=== PATIENT | female | born 1935 | race Caucasian/White ===

== ENCOUNTER → 2016-10-23 | Outpatient (CLI) | payer MEDICARE, OTHER ==
[~2016-10-23] MED LIST: ALBU8.5H3 INH; ALEN70TA30 PO; ASPI-664 PO; CELE200C PO; CLON1PAT17 TD; CLOP75TA27 PO; CYCL-319 PO; ENAL5TAB PO; ESOM40CA PO; GABA100C14 PO; LIDO700A6 TD; MEMA21CA PO; METO100T13 PO; MILN50TA PO; NIFE30TA60 PO; OLME40TA14 PO; OMEG1CAP2 PO; ROSU20TA PO; TRAM50TA2 PO; ZALE5CAP PO
--- NOTE | 2016-10-23 16:00 | RADRPT ---
PROCEDURE: CT scan of the abdomen and pelvis without IV contrast. CLINICAL INDICATION: Weight loss. TECHNIQUE: Thin section axial, coronal and sagittal images were performed through the abdomen and pelvis without contrast. Radiation Dose: CTDI: 18.4 and DLP: 1039.75 One or more of the following dose reduction techniques were used: - Automated exposure control. - Adjustment of the mA and/or kV according to patient size. Use of iterative reconstruction technique. COMPARISON: Chest x-ray 10/13/2016 06:18 a.m. FINDINGS: Soft tissues: Generous but otherwise unremarkable.. Lungs and pleural spaces: There are plate-like densities in the bases of the lungs consistent with p arenchymal scarring or atelectasis. No infiltrate or pleural effusion is identified. Heart: The heart is normal in size. There are vascular calcifications in the coronary arteries. The liver, common bile duct and gallbladder: The liver is normal in size. There is a possible subca psular lesion in the inferior lateral right lobe of the liver suggested on coronal image 47 of serie s 601. Although this finding is equivocal, given the patient's history, an abdominal ultrasound or c ontrast enhanced hemangioma protocol CT liver is recommended for evaluation. The gallbladder is nor mal. Gastrointestinal: There is no evidence of a hiatal hernia. The stomach is normal. There is diastas is rectus with a small midline umbilical hernia. No mechanical small-bowel obstruction is identifie d. There are diverticula in the descending colon. The vermiform appendix is normal. There are div erticula in the sigmoid colon. There is a right inguinal hernia containing only fat, no intra-abdomi nal. Pancreas: There is fatty replacement of the pancreas with no pancreatic mass or extrahepatic biliary ductal dilatation identified. Kidneys, bladder and adrenal glands : The adrenal glands and kidneys are unremarkable. The urinary bladder is normal. Spleen: Normal. Lymph nodes: Normal. Reproductive system and pelvis : Normal. No abnormal adnexal mass is identified. Bony elements: There are degenerative osteophytes in the thoracic and lumbar spine. There is a 2.7 cm benign hemangioma in the body of L3. There is a benign hemangioma measuring up to 2.5 cm AP in t he left side of the body of T12. There is a mild compression fracture involving the superior plate of T12 which appears chronic. Vasculature: There are atherosclerotic vascular calcifications in the abdominal aorta and its branch es. IMPRESSION: 1. Parenchymal scarring or atelectasis in the bases of the lungs. No acute infiltrate is present. 2. Atherosclerotic vascular disease. 3. Abdominal sonogram of the liver is recommended to exclude or further characterize if present a p otential 1.1 cm subcapsular lesion in the inferior right lobe of the liver. Series 601; image 47. 4. Diverticulosis of the descending and sigmoid colon. 5. Benign hemangioma is at L3 and T12 with chronic T12 compression fracture. 6. Atherosclerotic vascular disease. 7. Osteoarthritis of the thoracic and lumbosacral spine with a mild dextroscoliosis in the upper caterina mbar spine. 8. Rectus diastasis with small midline umbilical hernia. RPTAT:AAJJ Physician Mode Date Time Electronically viewed and signed by Jamil Melendez Physician on 10/23/2016 15:59 RAYA/
== END | disposition home or self-care (01) ==
LOC: C/S 08:40
PROVIDERS: ATTEND Internal Medicine
DX: R63.4 Abnormal weight loss (principal); J98.11 Atelectasis; I70.209 Unspecified atherosclerosis of native arteries of extremities, unspecified extremity; K57.90 Diverticulosis of intestine, part unspecified, without perforation or abscess without bleeding; D18.09 Hemangioma of other sites; M47.897 Other spondylosis, lumbosacral region; Q79.59 Other congenital malformations of abdominal wall; K42.9 Umbilical hernia without obstruction or gangrene
CPT/HCPCS: 74176

== ENCOUNTER 2017-01-12 09:49 | Emergency (ER) | payer MEDICARE, OTHER ==
[~2017-01-12] VITALS: Ht 160 cm; Wt 75.0 kg
[2017-01-12 09:51] VITALS: Ht 160 cm; Wt 75.0 kg
[2017-01-12] MEDS ORDERED: ONDANSETRON 4 MG INJ IV STA (10:23)
[2017-01-12] MEDS ORDERED: morphine 2 MG INJ IV STA (10:23)
[2017-01-12 10:47] LABS: ADD SCAN DIFF NO
[2017-01-12 10:54] LABS: BASOPHILS % 0.4 % (0.0-2.0); EOSINOPHILS % 0.3 % (0.0-7.0); HEMATOCRIT 42.5 % (37.0-47.0); HEMOGLOBIN 13.9 g/dl (12.0-16.0); LYMPHOCYTES # 1.4 10^3/ul (0.8-2.9); LYMPHOCYTES % 18.7 % (15.0-51.0); MEAN CORPUSCULAR HGB CONC 32.7 g/dl (32.0-37.0); MEAN CORPUSCULAR VOLUME 91.6 fl (82.0-101.0); MEAN PLATELET VOLUME 10.5 fl (7.4-10.4); MONOCYTE # 0.5 10^3/ul (0.3-0.9); MONOCYTES % 6.4 % (0.0-11.0); NEUTROPHIL # 5.7 10^3/ul (1.6-7.5); NEUTROPHILS % 73.7 % (39.0-77.0); PLATELET COUNT 236 10^3/UL (140-415); RED BLOOD COUNT 4.64 10^6/ul (4.20-5.40); RED CELL DISTRIBUTION WIDTH 13.2 % (11.5-14.5); WHITE BLOOD COUNT 7.7 10^3/ul (4.8-10.8)
--- NOTE | 2017-01-12 11:08 | RADRPT ---
PROCEDURE: XR Chest. CLINICAL INDICATION: Chest pain TECHNIQUE: Single frontal view of the chest was obtained. COMPARISON: 12/25/2014 FINDINGS: The heart is within normal limits. The thoracic aorta is calcified. The lungs are clear. There is no pleural effusion or pneumothorax. RPTAT: AA IMPRESSION: No acute disease. Calcified aorta consistent with atherosclerotic disease. .Davide Garcia MD, MD Date Time Electronically viewed and signed by .Davide Garcia MD, on 01/12/2017 11:08 .S/
[2017-01-12 11:28] LABS: CHLORIDE 100 mmol/L (97-110); POTASSIUM 3.5 mmol/L (3.5-5.1); SODIUM 139 mmol/L (135-144)
[2017-01-12 11:31] LABS: ANION GAP 17 (8-16); BLOOD UREA NITROGEN 13 mg/dl (7-20); CARBON DIOXIDE 26 mmol/L (21-31); CREATININE 0.61 mg/dl (0.44-1.00)
[2017-01-12 11:32] LABS: CALCIUM 9.6 mg/dl (8.4-10.2); GLUCOSE 107 mg/dl (70-220)
[2017-01-12 11:45] LABS: TROPONIN-I < 0.012 ng/ml (0.00-0.12)
--- NOTE | 2017-01-12 13:06 | ERD ---
ER Documentation Chief Complaint Date/Time DATE: 01/12/17 TIME: 09:40 Chief Complaint TRIP AND FALL THIS MORNING C/O OF RIGHT RIB PAIN HPI 81-year-old female with a history of hypertension, hyperlipidemia, arthritis, paroxysmal SVT status post ablation, migraine headaches and intermittent dizziness ambulatory to the ED complaining of right rib pain. She was in her house when she turned suddenly experienced transient dizziness and hit her right chest against the counter. Since then she has been having increasing, sharp, moderate to severe right-sided lateral rib pain exacerbated by deep breathing and movement. There was no fall, syncope or loss of consciousness. She denies headache, neck pain, visual changes, focal weakness or numbness. No dizziness or lightheadedness. No chest pain or palpitations. No shortness of breath or cough. No abdominal pain, nausea, vomiting, diarrhea or constipation. No recent URI symptoms or rhinorrhea. Denies earache but she does complain of intermittent tinnitus. Denies dysuria, polyuria, hematuria or flank pain. No fevers or chills. ROS All systems reviewed and are negative except as per history of present illness. Medications Home Meds Active Scripts Tramadol HCl (Tramadol HCl) 50 Mg Tablet, 50 MG PO Q6 Y for PAIN, #12 TAB Prov:TREVA BAEZ MD 01/12/17 Enalapril Maleate* (Enalapril Maleate*) 5 Mg Tablet, 10 MG PO DAILY for 30 Days , TAB Prov:LANG HANKINS MD 12/26/14 Reported Medications Milnacipran Hcl (Savella) 50 Mg Tablet, 50 MG PO BID, TAB 12/25/14 Olmesartan Medoxomil (Benicar) 40 Mg Tablet, 40 MG PO DAILY, TAB 12/25/14 Lidocaine 5%* (Lidoderm 5%*) 5% - Patch Adh..patch, 1 PATCH TD DAILY, PATCH 12/25/14 Memantine* (Namenda* XR) 21 Mg Cap.spr.24, 21 MG PO DAILY, TAB 12/25/14 Esomeprazole Mag Trihydrate (Nexium) 40 Mg Capsule.dr, 40 MG PO BID, CAP 12/25/14 Alendronate Sodium* (Fosamax*) 70 Mg Tablet, 70 MG PO Q7D, TAB 12/25/14 Clonidine Hcl Transdermal Patch* (Catapres-TTS 1*) 0.1 Mg/24 Hr/Patch.wk Patch.tdwk, 1 PATCH TD Q7D, PATCH 12/25/14 Albuterol Sulfate* (Proair HFA*) 8.5 Gm Hfa.aer.ad, 2 PUFF INH Q4H Y for WHEEZING AND SOB, INH 12/25/14 Cyclobenzaprine Hcl* (Cyclobenzaprine Hcl*) 10 Mg Tablet, 10 MG PO DAILY Y for MUSCLE SPASMS, TAB 12/25/14 Tramadol HCl (Tramadol HCl) 50 Mg Tab, 50 MG PO BID, TAB 12/25/14 Gabapentin* (Gabapentin*) 100 Mg Capsule, 100 MG PO TID, CAP 12/25/14 Clopidogrel Bisulfate (Clopidogrel) 75 Mg Tablet, 75 MG PO DAILY, TAB 12/25/14 Pitkin-3 Acid Ethyl Esters (Lovaza) 1 Gm Capsule, 2 GM PO BID, CAP 12/25/14 Zaleplon (Zaleplon) 5 Mg Capsule, 5 MG PO HS Y for INSOMNIA, CAP 12/25/14 Metoprolol Succinate* (Toprol XL*) 100 Mg Tab.sr.24h, 100 MG PO DAILY, TAB 12/25/14 Nifedipine* (Nifedipine ER*) 30 Mg Tablet.sa, 30 MG PO BID, TAB.SA 12/25/14 Celecoxib* (Celebrex*) 200 Mg Capsule, 200 MG PO DAILY, CAP 12/25/14 Rosuvastatin Calcium* (Crestor*) 20 Mg Tablet, 20 MG PO HS, TAB 12/25/14 Aspirin* (Aspirin* EC) 81 Mg Tablet.dr, 81 MG PO DAILY, TAB 12/25/14 Allergies Allergies: Coded Allergies: No Known Allergy (Unverified , 01/12/17) PMhx/Soc Reviewed in chart. As per HPI. Medical and Surgical Hx: pt denies Surgical Hx History of Surgery: No Anesthesia Reaction: No Hx Neurological Disorder: No Hx Respiratory Disorders: No Hx Cardiac Disorders: Yes (afib) Hx Psychiatric Problems: No Hx Miscellaneous Medical Probl: Yes (vertigo) Hx Alcohol Use: No Hx Substance Use: No Hx Tobacco Use: No Smoking Status: Never smoker FmHx Mother: CVA. Lives independently and cares for her infirmed . Physical Exam Vitals Vital Signs Date Time Temp Pulse Resp B/P Pulse Ox O2 Delivery O2 Flow Rate FiO2 01/12/17 11:59 77 18 130/90 99 Room Air 01/12/17 09:51 98.8 72 20 150/75 98 Physical Exam Const: Alert, moderate distress due to pain. Head: Atraumatic Eyes: Normal Conjunctiva ENT: Normal External Ears, Nose and Mouth. Neck: Full range of motion. Supple, nontender, full range of motion Resp: Clear to auscultation bilaterally Cardio: Regular rate and rhythm, no murmurs Chest Wall: Right lateral chest wall tenderness. No subcutaneous crepitus. No ecchymosis or bruising. Abd: Soft, non tender, non distended. Normal bowel sounds Skin: No petechiae or rashes Back: No midline or flank tenderness Ext: No cyanosis, or edema Neur: Awake and alert Psych: Normal Mood and Affect Result Diagram: 01/12/17 1030 01/12/17 1030 Results 24 hrs Laboratory Tests Test 01/12/17 10:30 White Blood Count 7.710^3/ul Red Blood Count 4.6410^6/ul Hemoglobin 13.9g/dl Hematocrit 42.5% Mean Corpuscular Volume 91.6fl Mean Corpuscular Hemoglobin 30.0pg Mean Corpuscular Hemoglobin Concent 32.7g/dl Red Cell Distribution Width 13.2% Platelet Count 68295^3/UL Mean Platelet Volume 10.5fl Neutrophils % 73.7% Lymphocytes % 18.7% Monocytes % 6.4% Eosinophils % 0.3% Basophils % 0.4% Nucleated Red Blood Cells % 0.0/100WBC Neutrophils # 5.710^3/ul Lymphocytes # 1.410^3/ul Monocytes # 0.510^3/ul Eosinophils # 0.010^3/ul Basophils # 0.010^3/ul Nucleated Red Blood Cells # 0.010^3/ul Sodium Level 139mmol/L Potassium Level 3.5mmol/L Chloride Level 100mmol/L Carbon Dioxide Level 26mmol/L Anion Gap 17 Blood Urea Nitrogen 13mg/dl Creatinine 0.61mg/dl Glucose Level 107mg/dl Calcium Level 9.6mg/dl Troponin I < 0.012ng/ml Current Medications Medications (Trade) Dose Ordered Sig/Jayy Route PRN Reason Start Time Stop Time Status Last Admin Dose Admin Morphine Sulfate (morphine) 2 mg ONCE STAT IV 01/12/17 10:23 01/12/17 10:25 DC 01/12/17 10:31 Ondansetron HCl (Zofran Inj) 4 mg ONCE STAT IV 01/12/17 10:23 01/12/17 10:25 DC 01/12/17 10:30 RHYTHM STRIP INTERPRETATION: Time: []. Indication: []. EKG: Time: 10:35. Sinus rhythm. Ventricular rate 69, normal TX and QRS intervals. No acute ST segment elevation or depression. No axis deviation or ectopy. EP Impression: Normal EKG IMAGING: PROCEDURE: XR Chest. CLINICAL INDICATION: Chest pain TECHNIQUE: Single frontal view of the chest was obtained. COMPARISON: 12/25/2014 FINDINGS: The heart is within normal limits. The thoracic aorta is calcified. The lungs are clear. There is no pleural effusion or pneumothorax. RPTAT: AA IMPRESSION: No acute disease. Calcified aorta consistent with atherosclerotic disease. .Davide Garcia MD, MD Date Time Electronically viewed and signed by .Davide Garcia MD, MD on 01/12/2017 11: 08 .S/ Procedures/MDM DOCUMENTS REVIEWED: ED nurse, prior records REEXAMINATION/REEVALUATION: Time: 13:00. Doing well. Pain diminished. [employer] DECISION MAKIN-year-old female with a history of hypertension, hyperlipidemia, arthritis, paroxysmal SVT status post ablation, migraine headaches and intermittent dizziness ambulatory to the ED complaining of right rib pain. Patient presents with chest wall pain secondary to contusion. No radiographic evidence of pneumothorax or rib fracture although occult fracture is possible. No cardiac dysrhythmia and EKG is normal. Patient has intermittent dizziness but no vertiginous symptoms. There was no syncope, fall or loss of consciousness. No focal deficit or indication for neuroimaging. Doubt vertebrobasilar TIA is considered but unlikely. Pain improved with analgesics. Stable for discharge with precautionary instructions and outpatient follow-up as counseled Counseled patient regarding diagnostic workup, diagnosis and need for followup. Understands to return to ED if symptoms recur, worsen or any other concerns. Departure Diagnosis: Primary Impression: Chest wall contusion Encounter type: initial encounter Laterality: right Qualified Code: S20.211A - Chest wall contusion, right, initial encounter Additional Impressions: Dizziness History of paroxysmal supraventricular tachycardia History of radiofrequency ablation (RFA) procedure for cardiac arrhythmia Condition: Stable (Improved) TREVA BAEZ MD January 12, 2017 13:06
[2017-01-12] MEDS ORDERED: TRAM50TA2 PO (13:09)
[2017-01-12 13:24] VITALS: BP 125/87; PULSE 75; RESP 18; TEMP 98.8
== END 2017-01-12 13:05 | disposition home or self-care (01) ==
LOC: E/R 09:49 → FTE 13:05
DX: S20.211A Contusion of right front wall of thorax, initial encounter (principal); R42 Dizziness and giddiness; I10 Essential (primary) hypertension; W01.198A Fall on same level from slipping, tripping and stumbling with subsequent striking against other object, initial encounter; Y92.009 Unspecified place in unspecified non-institutional (private) residence as the place of occurrence of the external cause; Z86.79 Personal history of other diseases of the circulatory system; Z98.890 Other specified postprocedural states; Z79.82 Long term (current) use of aspirin
CPT/HCPCS: 71010; 80048; 84484; 85025; J2270; J2405; 93005; 96374; 96375

== ENCOUNTER 2017-12-16 12:26 | Emergency (ER) | END 2017-12-16 16:31 | disposition home or self-care (01) ==

== ENCOUNTER 2019-04-10 14:02 | Emergency (ER) | payer MEDICARE, OTHER ==
[~2019-04-10] VITALS: Wt 75.0 kg
[~2019-04-10 14:02] MED LIST changes: -ALBU8.5H3 INH; -ALEN70TA30 PO; +ALEN70TA5 PO; +AMLO5TAB4 PO; +APIX5TAB PO; -ASPI-664 PO; +ASPI-817 PO; +ASPI81TA52 PO; +CITA10TA5 PO; +CLON-379 PO; -CLON1PAT17 TD; -CLOP75TA27 PO; -CYCL-319 PO; +CYCL10TA7 PO; +DEXL30CA2 PO; +DIC20 PO; +DONE10TA7 PO; -ENAL5TAB PO; -ESOM40CA PO; -GABA100C14 PO; +IBUP-1542 PO; -LIDO700A6 TD; +LIOT5TAB3 PO; +LORA0.5T PO; +METO-319 PO; -METO100T13 PO; -MILN50TA PO; +MIRT15TA5 PO; -NIFE30TA60 PO; +NITR0.4T32 SL; +NITR0.4T39 SL; +OLAN2.5T28 PO; +OLME40TA13 PO; -OLME40TA14 PO; -OMEG1CAP2 PO; -ROSU20TA PO; +SUMA100T4 PO; -TRAM50TA2 PO; -ZALE5CAP PO; +ZOLP10TA5 PO; +ZOLP5TAB7 PO
[2019-04-10] MEDS ORDERED: SOD CHLORIDE 0.9% 500 ML IV STA (14:22)
[2019-04-10] MEDS ORDERED: morphine 2 MG INJ IV STA (14:22)
[2019-04-10] MEDS ORDERED: ONDANSETRON 4 MG INJ IV STA (14:22)
[2019-04-10] MEDS ORDERED: IOHEXOL 300MG/ML 150 ML BTL ONE (15:22)
[2019-04-10] MEDS ORDERED: SOD CHLORIDE 0.9% 100 ML ONE (15:22)
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
[2019-04-10] MEDS ORDERED: LORAZEPAM 2 MG INJ IV ONE (19:30)
[2019-04-10] MEDS ORDERED: KETOROLAC 30 MG INJ IV STA (20:00)
[2019-04-10 20:19] VITALS: BP 150/100; PULSE 64; RESP 18
--- NOTE | 2019-04-12 13:31 | RADRPT ---
Vent Rate: 70 bpm RR Interval: 856 msec [place] Interval: 251 msec QRS Duration: 97 msec QT Interval: 424 msec QTC Interval: 458 msec P-R-T [place]: 39 - 34 - 267 degrees Sinus rhythm...normal P axis, V-rate 50- 99 Prolonged NJ interval...NJ >220, V-rate 50- 90 Nonspecific T abnormalities, diffuse leads...T <-0.10mV, ant/lat/inf Electronically Signed By: Lucia Davis
== END 2019-04-10 20:00 | disposition home or self-care (01) ==
LOC: E/R 14:02
DX: S39.91XA Unspecified injury of abdomen, initial encounter (principal); I10 Essential (primary) hypertension; S29.9XXA Unspecified injury of thorax, initial encounter; R06.02 Shortness of breath; R40.2142 Coma scale, eyes open, spontaneous, at arrival to emergency department; R40.2362 Coma scale, best motor response, obeys commands, at arrival to emergency department; R40.2252 Coma scale, best verbal response, oriented, at arrival to emergency department; V49.59XA Passenger injured in collision with other motor vehicles in traffic accident, initial encounter; Z79.82 Long term (current) use of aspirin; Z79.01 Long term (current) use of anticoagulants
CPT/HCPCS: 71045; 74177; 80053; 84484; 85025; 85610; 85730; 93005; 96374; 96375; 99285; J1885; J2270; J2405; J7040; Q9967; J2060